=== PATIENT | male | born 1970 | race Caucasian/White ===

== ENCOUNTER 2022-04-16 02:35 | Day surgery (SDC) | payer BC, SELFPAY ==
[2022-04-01 14:31] VITALS: BMI 32.8
[2022-04-16 06:52] VITALS: BP 151/98; PULSE 78; RESP 18; TEMP 36.1; O2SAT 97
[2022-04-16] MEDS: LACTATED RINGERS 1,000 ML 150 ML IV CONT (07:01)
--- NOTE | 2022-04-16 07:14 | P.PNAN_ITS ---
Anes - Initial Pre Proc Eval Procedure: Operation Date: 04/16/22 08:00 Proposed Procedures p Screening Colonoscopy - Munir Rogers MD Date/Time: 04/16/22 07:14 Surgeon: Munir Rogers MD Pre Op Diagnosis: neoplasm screening Patient Data Age: 51 Gender: M Height: 1.8 m Weight: 116.7 kg Last Vital Signs Temp 36.1 C L 04/16/22 06:52 Pulse 78 04/16/22 06:52 Resp 18 04/16/22 06:52 BP 151/98 H 04/16/22 06:52 Pulse Ox 97 04/16/22 06:52 O2 Del Method Room Air 04/16/22 06:52 Allergies Allergy/AdvReac Type Severity Reaction Status Date / Time No Known Allergies Allergy Unverified 04/16/22 06:51 Home Medications Medication Instructions Recorded Confirmed Type amlodipine 5 mg-benazepril 10 mg 1 cap PO DAILY #90 caps 12/01/21 04/01/22 Rx capsule Patient hx anesthesia problems: none Family hx anesthesia problems: none Results Review: All pre-operative results and documents have been reviewed as part of the pre- operative evaluation. [facility] Past Medical History Medical History Colon cancer screening Colonoscopy planned Dyslipidemia Hypertension Surgical History Surgical History H/O colonoscopy 05/2015 Dr. Rogers repeat 5 years Family History Family History Father Carcinoma of colon Mother Breast cancer Social History Social History Smoking status: Never smoker Alcohol intake: current Drinks per week: 6 Substance use: never Living arrangements: alone Occupation/Education: occupation Additional occupation/education comments: Self employed Spiritual care concerns: No Anes - Eval Final PreProcedure Day of Procedure 04/16/22 07:14 Patient weight: obese Heart: regular rate and rhythm Lungs: clear to auscultation Airway: Mallampati scale class II Neurological: alert and oriented Last oral intake: >/= 8 hours ASA classification: III Emergent: no Anesthetic plan: proceed Anesthesia type and monitoring: general GIVS and standard monitoring Results Review: All pre-operative results and documents have been reviewed as part of the pre- operative evaluation. Informed Consent: The patient's anesthetic plan and its attendant risks and benefits were discuss ed with the patient/family/POA. Questions were solicited and answers provided to the satisfaction of the patient/family/POA.
--- NOTE | 2022-04-16 07:49 | PM.HPGS ---
History of Present Illness History of Present Illness Consent: Risks, benefits, and alternatives have been discussed and questions answered. Patient agrees to proceed with procedure. Chief complaint: neoplasm screening Narrative: Ronald Singh is a 51 year old male Presents for screening colonoscopy. Patient's current weight appetite bowel movements are normal. Patient denies abdominal pain. He has had no bleeding. Family history is significant that his father had colon cancer. Patient had a previous colonoscopy 2015 that was unremarkable. Patient presents today for neoplasia screening colonoscopy. Review of Systems Review of Systems: Review of systems is noncontributory. [facility] Past Medical History Medical History Colon cancer screening Colonoscopy planned Dyslipidemia Hypertension Surgical History Surgical History H/O colonoscopy 05/2015 Dr. Rogers repeat 5 years Family History Family History Father Carcinoma of colon Mother Breast cancer Social History Social History Smoking status: Never smoker Alcohol intake: current Drinks per week: 6 Substance use: never Living arrangements: alone Occupation/Education: occupation Additional occupation/education comments: Self employed Spiritual care concerns: No Meds Home Medications and Allergies Home Medications Medication Instructions Recorded Confirmed Type amlodipine 5 mg-benazepril 10 mg 1 cap PO DAILY #90 caps 12/01/21 04/01/22 Rx capsule Allergies Allergy/AdvReac Type Severity Reaction Status Date / Time No Known Allergies Allergy Unverified 04/16/22 06:51 Vital Signs Vital Signs - 24 hr 04/16/22 06:52 Temperature 97 F L Pulse Rate 78 Respiratory Rate 18 Blood Pressure 151/98 H Pulse Oximetry 97 Oxygen Delivery Room Air Exam Narrative: Physical exam reveals patient to be alert. Vital signs stable. HEENT exam is unremarkable. Patient is anicteric. Lungs are clear to auscultation and percussion. Heart is without murmur or extra sounds. Abdomen bowel sounds are present soft nontender with no organomegaly. Digital external rectal exam is normal. Assessment and Plan Assessment and plan (1) Family history of colon cancer in father: Code(s): Z80.0 - Family history of malignant neoplasm of digestive organs Status: Acute Assessment and Plan: Patient's father had colon cancer. Plan for colonoscopy. Further recommendations will be given after endoscopy.
[2022-04-16 08:17] VITALS: BP 117/85; PULSE 70; RESP 21; O2SAT 97
[2022-04-16 08:27] VITALS: BP 126/91; PULSE 63; RESP 16; O2SAT 95
[2022-04-16 08:37] VITALS: BP 143/98; PULSE 61; RESP 18; O2SAT 98
== END 2022-04-16 08:39 | disposition home or self-care (01) ==
PROVIDERS: PCP Family Medicine; Visit Provider Internal Medicine Gastroenterology
PROC: 0DJD8ZZ Inspection of Lower Intestinal Tract, Via Natural or Artificial Opening Endoscopic (ICD-10-PCS; CPT 45378; principal; 2022-04-16 08:00)
DX: Z12.11 Encounter for screening for malignant neoplasm of colon (principal); D12.2 Benign neoplasm of ascending colon; K62.1 Rectal polyp; Z80.0 Family history of malignant neoplasm of digestive organs; I10 Essential (primary) hypertension; E78.5 Hyperlipidemia, unspecified; E66.9 Obesity, unspecified; Z68.35 Body mass index [BMI] 35.0-35.9, adult
CPT/HCPCS: 45385; 88305; J2704; J7120